=== PATIENT | female | born 1935 | race Caucasian/White ===

== ENCOUNTER 2021-03-15 18:41 | Observation (INO) ==
[2021-03-16] MEDS ORDERED: Ondansetron 4 MG/2 ML VIAL IVP PRN (00:22)
[2021-03-16] MEDS ORDERED: Naloxone 0.4 MG/ML INJ IVP PRN (00:22)
[2021-03-16] MEDS ORDERED: Melatonin 3 MG TABLET PO PRN (00:22)
[2021-03-16] MEDS ORDERED: Acetaminophen 325 MG TABLET PO PRN ×2 (00:22)
[2021-03-16] MEDS ORDERED: Ipratropium 1 PUFF INHALER IH PRN (00:30)
[2021-03-16 01:20] LABS: Hematocrit 40.7 % (35.3-44.9); Immature Granulocytes % 0.4 % (0-4); Immature Platelets 2.1 % (1.1-6.1); Lymphocytes # 0.3 K/mcL (0.6-4.6); Lymphocytes % 13.3 %; Mean Corpuscular HGB Conc 31.9 g/dL (31.6-35.5); Mean Corpuscular Hemoglobin 28.7 pg (28.0-33.3); Mean Corpuscular Volume 89.8 fL (83.0-100.0); Mean Platelet Volume 10.1 fL (9.4-12.4); Monocytes # 0.1 K/mcL (0.0-1.3); Monocytes % 3.8 %; Red Blood Count 4.53 M/mcL (3.82-4.97); Red Cell Distribution Width 13.2 % (11.5-14.5); Segmented Neutrophils % 82.5 %; White Blood Count 2.4 K/mcL (4.3-11.1)
[2021-03-16 01:27] LABS: Prothrombin Time 11.1 Seconds (9.4-12.1)
[2021-03-16 01:30] LABS: Activated Partial Thrombo Time 34.2 Seconds (26.0-36.0)
[2021-03-16 01:43] LABS: Platelet Count 92 K/mcL (140-400); Platelet Estimate Slight Decrease (Normal)
[2021-03-16 01:44] LABS: C-Reactive Protein 29 mg/L (Less than 10); Lactate Dehydrogenase 194 Units/L (140-271)
[2021-03-16 01:47] LABS: Troponin I 0.12 ng/mL (< 0.04)
[2021-03-16 01:54] LABS: Albumin 3.5 g/dL (3.5-5.7); Albumin/Globulin Ratio 1.5 (1.1-2.2); Bilirubin,Total 0.5 mg/dL (0.3-1.0); Globulin 2.4 g/dL (2.4-3.5); Magnesium 1.6 mg/dL (1.6-2.6); Potassium 3.8 mEq/L (3.5-5.1); Total Protein 5.9 g/dL (6.4-8.9)
[2021-03-16 01:57] LABS: Ferritin 531 ng/mL (10-120)
[2021-03-16] MEDS ORDERED: 0.9 % Sodium Chloride 250 ML IVC ONE (03:42)
[2021-03-16 13:26] LABS: Bilirubin,Urine Negative (Negative); Blood,Urine Trace (Negative); Clarity,Urine Clear (Clear); Color,Urine Light-Yellow (Yellow); Glucose,Urine (UA) Normal (Normal); Ketones,Urine 20 mg/dL (Negative); Leukocyte Esterase,Urine Negative (Negative); Nitrite,Urine Negative (Negative); Protein,Urine 30 mg/dL (Neg-Trace); RBC,Urine 0-3 per hpf (0-3); Specific Gravity,Urine 1.016 (1.010-1.025); Urobilinogen,Urine Normal (Normal); WBC,Urine 0-3 per hpf (0-3)
[2021-03-16] MEDS: *HR* Enoxaparin 30 MG/0.3 ML SYRINGE SQ SCH (13:50)
[2021-03-17 01:09] LABS: Hematocrit 41.9 % (35.3-44.9); Hemoglobin 14.1 g/dL (11.5-15.4); Immature Granulocytes % 0.4 % (0-4); Lymphocytes # 0.5 K/mcL (0.6-4.6); Lymphocytes % 9.8 %; Mean Corpuscular HGB Conc 33.7 g/dL (31.6-35.5); Mean Corpuscular Hemoglobin 29.6 pg (28.0-33.3); Monocytes # 0.4 K/mcL (0.0-1.3); Monocytes % 7.1 %; Neutrophils # 4.6 K/mcL (1.6-8.9); Platelet Count 104 K/mcL (140-400); Red Blood Count 4.76 M/mcL (3.82-4.97); Segmented Neutrophils % 82.7 %
[2021-03-17 01:11] LABS: White Blood Count 5.5 K/mcL (4.3-11.1)
[2021-03-17 01:25] LABS: Calcium 8.5 mg/dL (8.6-10.3); Potassium 3.8 mEq/L (3.5-5.1)
[2021-03-17] MEDS: *HR* Enoxaparin 30 MG/0.3 ML SYRINGE SQ SCH (05:45)
[2021-03-17 16:50] VITALS: BP 150/77; PULSE 71; TEMP 97.4; O2SAT 96
== END 2021-03-17 17:24 | disposition home or self-care (01) ==
LOC: 2ANU → SUATTDRO 23:41
PROVIDERS: ADMIT Family Medicine; ATTEND Internal Medicine